=== PATIENT | female | born 2000 | race Two or more races ===

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

== ENCOUNTER 2019-12-14 15:06 | Emergency (ER) | payer OTHER ==
[~2019-12-14] VITALS: Ht 167.6 cm; Wt 56.7 kg
[2019-12-14] MEDS ORDERED: ACETAMINOPHEN 500 MG TAB PO ONE (16:45)
[2019-12-14 17:20] LABS: HEMATOCRIT 46.5 % (36.0-47.0); HEMOGLOBIN 15.7 g/dl (12.0-15.5); MEAN CORPUSCULAR HEMOGLOBIN 30.5 pg (27.0-33.0); MEAN CORPUSCULAR HGB CONC 33.8 g/dl (32.0-36.5); MEAN CORPUSCULAR VOLUME 90.5 fl (80.0-96.0); PLATELET COUNT, AUTOMATED 156 10^3/uL (150-450); RED BLOOD COUNT 5.14 10^6/uL (4.00-5.40); WHITE BLOOD COUNT 5.7 10^3/uL (4.0-10.0)
[2019-12-14 17:49] LABS: ALBUMIN 3.6 GM/DL (3.2-5.2); ALT/SGPT 48 U/L (12-78); BILIRUBIN,DIRECT 0.3 MG/DL (0.0-0.2); BILIRUBIN,TOTAL 0.9 MG/DL (0.2-1.0); BLOOD UREA NITROGEN 12 MG/DL (7-18); CALCIUM LEVEL 9.2 MG/DL (8.5-10.1); CARBON DIOXIDE LEVEL 26 MEQ/L (21-32); CHLORIDE LEVEL 105 MEQ/L (98-107); CREATININE FOR GFR 0.74 MG/DL (0.55-1.30); GLUCOSE, FASTING 77 MG/DL (70-100); LIPASE 95 U/L (73-393); POTASSIUM SERUM 3.8 MEQ/L (3.5-5.1); SODIUM LEVEL 139 MEQ/L (136-145); TOTAL PROTEIN 7.7 GM/DL (6.4-8.2)
[2019-12-14 17:50] LABS: HCG, SERUM QUALITATIVE NEGATIVE (NEGATIVE)
[2019-12-14 17:53] LABS: ATYPICAL LYMPH 6 % (0-5); EOSINOPHILS 1 % (0-3); LYMPHOCYTES 18 % (16-44); MONOCYTES 2 % (0-5); NEUTROPHILS 69 % (28-66); PLATELET ESTIMATE NORMAL (NORMAL)
[2019-12-14] MEDS ORDERED: CIPR-249 PO (18:40)
[2019-12-14 18:51] VITALS: BP 110/62
--- NOTE | 2019-12-15 04:44 | REP ---
CHEST PORTABLE: REASON: Possible COVID-19. Portable view of the chest. FINDINGS: The technique utilized in obtaining the radiograph has magnified the cardiac silhouette and accentuated the interstitial markings. The superior mediastinal structures are midline. The cardiac silhouette is unremarkable in size, shape, and position. The diaphragmatic surfaces of the lungs are regular, and the costophrenic angles are clear. The pulmonary brandon are clear. The imaged osseous structures are intact. IMPRESSION: There is no acute cardiopulmonary disease. Electronically Signed by Ike Mancera DO 12/15/2019 09:16 A
== END 2019-12-14 18:58 | disposition home or self-care (01) ==
LOC: M ED 15:06
DX: J06.9 Acute upper respiratory infection, unspecified (principal); N10 Acute pyelonephritis; N30.90 Cystitis, unspecified without hematuria

== ENCOUNTER → 2020-10-07 | Outpatient (REF) | payer MEDICAID ==
[~2020-10-07] MED LIST: CIPR-249 PO
== END ==
LOC: M LAB REF 16:26
PROVIDERS: ATTEND Advanced Practice Midwife
DX: Z34.83 Encounter for supervision of other normal pregnancy, third trimester (principal)

== ENCOUNTER 2020-10-24 04:32 | Inpatient (IN) | payer MEDICAID ==
[2020-10-24] VITALS (94 sets, daily range): BP systolic 93–219; BP diastolic 50–125
[~2020-10-24] VITALS: Ht 167.6 cm; Wt 77.2 kg
[2020-10-24 06:07] LABS: HEMATOCRIT 38.4 % (36.0-47.0); HEMOGLOBIN 13.3 g/dl (12.0-15.5); MEAN CORPUSCULAR HEMOGLOBIN 31.3 pg (27.0-33.0); MEAN CORPUSCULAR HGB CONC 34.6 g/dl (32.0-36.5); MEAN CORPUSCULAR VOLUME 90.4 fl (80.0-96.0); PLATELET COUNT, AUTOMATED 205 10^3/uL (150-450); RED BLOOD COUNT 4.25 10^6/uL (4.00-5.40); WHITE BLOOD COUNT 18.6 10^3/uL (4.0-10.0)
[2020-10-24 06:29] LABS: ALT/SGPT 11 U/L (12-78); BILIRUBIN,TOTAL 0.3 MG/DL (0.2-1.0); CREATININE FOR GFR 0.56 MG/DL (0.55-1.30); GLOMERULAR FILTRATION RATE > 60.0 (>60); LDH LACTATE DEHYDROGENASE 250 U/L (84-246); TOTAL PROTEIN,RANDOM URINE 22.9 MG/DL (0.0-12.0); URIC ACID 4.3 MG/DL (2.6-6.0)
[2020-10-24] MEDS ORDERED: OXYTOCIN INJ 10 UNITS/ML VIAL (J2590) IM PRN (07:30)
[2020-10-24] MEDS ORDERED: OXYTOCIN DRIP 30 UNITS in IV 1 EA IV PRN (07:30)
[2020-10-24] MEDS ORDERED: LIDOCAINE 1% MDV 20ML VIAL INFIL PRN (07:30)
[2020-10-24] MEDS ORDERED: OXYTOCIN DRIP 30 UNITS in IV 1 EA IV SCH ×2 (07:30→13:25)
[2020-10-24] MEDS: LR 1,000 ML IV SCH ×2 (07:49→12:19)
[2020-10-24] MEDS ORDERED: PROMETHAZINE INJ 25 MG/ML VIAL (J2550) IV ONE (08:30)
[2020-10-24] MEDS ORDERED: BUTORPHANOL 2 MG/ML INJ (J0595) IV PRN (08:30)
--- NOTE | 2020-10-24 08:47 | HPE ---
HISTORY AND PHYSICAL DATE OF ADMISSION: 10/24/2020 HISTORY OF PRESENT ILLNESS: Carly is a 20-year-old 1 para 0, she is at 40 and 4/7th weeks gestation with an EDC of 10/20/2020 based on first trimester ultrasound. She presents to Labor and Delivery today with a report of painful contractions that started at 2300 last night and has become progressively more painful and uncomfortable. She does deny vaginal bleeding and leakage of fluid. The fetus has been active. Her care was initiated out of state in [place] with a transfer of care to [facility] at 38 weeks gestation. course has been uncomplicated. OBSTETRIC HISTORY: Primigravida. OBSTETRIC LABS: A positive, antibody screen negative, syphilis negative, hepatitis B negative, hepatitis C negative, HIV negative, gonorrhea and chlamydia negative. She did have gestational diabetic screening of 150. Her 3 hour glucose tolerance test was not completed due to the vomiting of the Glucola. Her fasting was 58 and her 1 hour was 145. Urine culture was negative and her GBS is negative. PAST MEDICAL HISTORY: Noncontributory. PAST SURGICAL HISTORY: None. FAMILY HISTORY: Noncontributory. SOCIAL HISTORY: The patient is single, however the father of the baby is at bedside and supportive. She is a nonsmoker. Denies alcohol and drug use. No history of sexually transmitted infection. Denies a history of abuse, physical, sexual and emotional. ALLERGIES: Adhesives. CURRENT MEDICATIONS: vitamin. OBJECTIVE: Her blood pressure upon arrival is elevated in the severe range with persistent continued elevations above the normal range. She has not had too severe range pressures 10 minutes apart, so at this point IV Labetalol has not been employed. Her temperature is 98.8, pulse 65, blood pressure again 167/106, most recent is 143/81. She is alert and oriented x3. heart rate is 120 with moderate variability, positive accelerations, negative decelerations. Her contractions are every 2-6 minutes, they are mild to palpation and lasting 30 to 40 seconds. Her abdomen is gravid, cephalic presentation. Estimated weight is 7 pounds. Sterile vaginal exam: Fingertip dilated, 80% effaced, -3 station, posterior moderate texture, no show. Her spot urine was 0.60 with preeclamptic labs returning normal values. ASSESSMENT: Intrauterine at 40 and 4/7th weeks heart rate Category 1, preeclampsia. PLAN: Admit the patient to Labor and Delivery, routine laboratories, bed rest with bathroom privileges, a clear liquid diet, start IV Pitocin for labor augmentation due to preeclampsia. I did review risks, benefits and alternatives, all the patient's questions have been answered. She has been verbally consented for emergency surgery and blood products if they are necessary. I do anticipate active labor.
[2020-10-24] MEDS ORDERED: hydrALAZINE 20MG/ML 1ML VIAL (J0360 PER 20MG) IV STA ×2 (08:56→18:47)
[2020-10-24] MEDS ORDERED: FENTANYL 2MCG/ML ROPIVACAINE 0.2% IN 0.9% NACL 100ML IVBAG As Ordered ONE (11:02)
[2020-10-24] MEDS ORDERED: diphenhydrAMINE 50MG/ML VIAL (J1200) IV PRN (11:25)
[2020-10-24] MEDS ORDERED: EPIDURAL/PCA KEYS XX PRN (11:25)
[2020-10-24] MEDS ORDERED: ePHEDrine SULFATE 25 MG/5 ML(5MG/ML) SYRINGE IV PRN (11:25)
[2020-10-24] MEDS ORDERED: ONDANSETRON 4MG/2ML VIAL IV PRN (11:25)
[2020-10-24] MEDS ORDERED: EPIDURAL COMMENT XX SCH (11:25)
[2020-10-24] MEDS ORDERED: REFRIGERATOR IV KEYS XX PRN (11:25)
[2020-10-24] MEDS ORDERED: LACTATED RINGER'S 1000 ML IV PRN (11:25)
[2020-10-24] MEDS ORDERED: NALOXONE INJ 0.4MG/1ML VIAL (J2310 PER 1MG) IV PRN (11:25)
[2020-10-24] MEDS ORDERED: FENTANYL/ROPIVACAINE/NACL BAG 100 ML EPIDURAL SCH (11:25)
[2020-10-24] MEDS ORDERED: LABETALOL 100MG/20ML VIAL IV STA ×2 (12:54→18:18)
[2020-10-24] MEDS ORDERED: LABETALOL 100MG/20ML VIAL As Ordered ONE (12:55)
[2020-10-24] MEDS ORDERED: CALCIUM GLUCONATE 1,000 MG in D5W MINI-BAG PLUS 100 ML IV PRN (13:20)
[2020-10-24] MEDS ORDERED: MAG Sulf (L&D) 4 GM/100 ML 4 GM in IV 1 EA IV ONE (13:20)
[2020-10-24] MEDS ORDERED: MAGNESIUM *L&D* 4GM/100ML BAG (40MG/ML) As Ordered ONE (13:20)
[2020-10-24] MEDS ORDERED: MAGNESIUM SULFATE 4% INJ 20GM/500ML (40MG/ML) As Ordered ONE (13:21)
[2020-10-24] MEDS ORDERED: DIBUCAINE 1% OINTMENT 30GM TOP PRN (13:25)
[2020-10-24] MEDS ORDERED: IBUPROFEN 800 MG TAB PO PRN (13:25)
[2020-10-24] MEDS ORDERED: RHOGAM 300 MCG (1500 IU) INJ (J2790) IM SCH (13:25)
[2020-10-24] MEDS ORDERED: ACETAMINOPHEN 500 MG TAB PO PRN (13:25)
[2020-10-24] MEDS ORDERED: DOCUSATE SODIUM 100MG CAPSULE PO PRN (13:25)
[2020-10-24] MEDS ORDERED: MEASLES,MUMPS,RUBELLA VACCINE INJ (MMR-II) (90707) SC SCH (13:25)
[2020-10-24] MEDS ORDERED: IBUPROFEN 600MG TAB PO PRN (13:25)
--- NOTE | 2020-10-24 13:32 | DNPDOC ---
[facility] Delivery Note Delivery Note DATE OF DELIVERY: 10/24/2020 PREDELIVERY DIAGNOSIS: 40w4d augmentation of latent labor for pre-eclampsia withOUT severe features POST DELIVERY DIAGNOSIS: Delivered. PROCEDURE: Spontaneous vaginal delivery VP [employer] [facility]: Dr. Mary Ricks MD ANESTHESIA: epidural ESTIMATED BLOOD LOSS: 200 mL. FINDINGS: 5 pound 13 ounce (2650g) female , Score 8/9, nuchal cord times 1 DELIVERY SUMMARY: Carly is a 20yo [id number] s/p uncomplicated at 40w4d after undergoing augmentation of latent labor for pre-eclampsia withOUT severe features, delivering at 1241 on 10/24/20. She received IV pitocin and crystal cervical bulb and very quickly progressed to C/C/0, at which point she began pushing. With excellent maternal effort, 's head delivered OA, restituted OMAR. There was a left compound hand and loose nuchal cord present. Left anterior shoulder delivered followed by posterior shoulder and corpus. Nuchal cord then reduced. was vigorous with lusty cry, apgars 8/9, placed on maternal abdomen. After approximately 2 minutes, cord was clamped x2 and cut by FOB. Cord blood obtained for MBT Rh neg. With firm traction on the cord and uterine massage, placenta delivered spontaneously and intact with centrally inserted 3 vessel cord. Bimanual massage was performed with firming of the uterus. IV pitocin bolused per protocol. Inspection of vagina and perineum revealed bilateral labial lacerations leading into bilateral sulcal lacerations repaired in routine fashion with 2-0 and 3-0 vicryl with complete hemostasis and excellent reapproximation. Another vaginal sweep performed with retrieval of only a small clot, and fundus remained firm at u-2cm. All counts correct x2. Mom and baby were doing well when I left the room. MD Rambo London Katrina D MD October 24, 2020 13:32
[2020-10-24] MEDS: LABETALOL 200 MG TAB PO SCH (19:27)
[2020-10-24] MEDS: ACETAMINOPHEN TAB 650MG DOSE (2X325MG) PO PRN (20:10)
[2020-10-24] MEDS ORDERED: LABETALOL 100MG/20ML VIAL IV ONE (20:35)
[2020-10-25] VITALS (19 sets, daily range): BP systolic 99–156; BP diastolic 51–101
[2020-10-25] MEDS: MAG Sulf (OBGYN) 20GM/500ML 20,000 MG in IV 1 EA IV SCH ×2 (00:22→10:33)
[2020-10-25] MEDS: LR 1,000 ML IV SCH ×2 (01:07→14:26)
[2020-10-25] MEDS: ACETAMINOPHEN TAB 650MG DOSE (2X325MG) PO PRN (03:01)
[2020-10-25] MEDS: LABETALOL 200 MG TAB PO SCH ×2 (07:21→21:00)
[2020-10-25] MEDS: PRENATAL VITAMINS CHEWABLE TABLET PO SCH (08:40)
[2020-10-25] MEDS ORDERED: SLF 3 ML SYR IV PRN (17:50)
[2020-10-25] MEDS: SLF 3 ML SYR IV SCH (22:00)
[2020-10-26 02:00] VITALS: BP 130/75
[2020-10-26] MEDS: SLF 3 ML SYR IV SCH (06:00)
[2020-10-26] MEDS ORDERED: LABE20TAB PO (07:14)
[2020-10-26 08:36] VITALS: BP 137/82
[2020-10-26] MEDS: PRENATAL VITAMINS CHEWABLE TABLET PO SCH (08:36)
[2020-10-26] MEDS: LABETALOL 200 MG TAB PO SCH (08:36)
[2020-10-26 10:37] VITALS: BP 137/83
== END 2020-10-26 11:55 | disposition home or self-care (01) | DRG 560 ==
LOC: M LDO 04:32 → M LDI 06:51 → M OBS 10-25 17:36
PROVIDERS: ADMIT Advanced Practice Midwife; ATTEND Advanced Practice Midwife
PROC: 10E0XZZ Delivery of Products of Conception, External Approach (ICD-10-PCS; principal; 2020-10-24)
PROC: 0KQM0ZZ Repair Perineum Muscle, Open Approach (ICD-10-PCS; 2020-10-24)
PROC: 0HQ9XZZ Repair Perineum Skin, External Approach (ICD-10-PCS; 2020-10-24)
DX: O14.04 Mild to moderate pre-eclampsia, complicating childbirth (principal); O48.0 Post-term pregnancy; Z3A.40 40 weeks gestation of pregnancy; Z37.0 Single live birth; O64.5XX0 Obstructed labor due to compound presentation, not applicable or unspecified; O69.81X0 Labor and delivery complicated by cord around neck, without compression, not applicable or unspecified; O71.4 Obstetric high vaginal laceration alone; O70.0 First degree perineal laceration during delivery

== ENCOUNTER 2024-01-20 14:23 | Emergency (ER) | payer OTHER, MEDICAID ==
[~2024-01-20] VITALS: Ht 167.6 cm; Wt 63.7 kg
[~2024-01-20 14:23] MED LIST changes: +LABE20TAB PO
[2024-01-20 16:08] LABS: BASO % 0.4 % (0.0-1.0); EOS % 0.1 % (0.0-3.0); HEMATOCRIT 43.8 % (36.0-47.0); HEMOGLOBIN 15.3 g/dl (12.0-15.5); LYMPH # 2.2 10^3/uL (1.5-5.0); LYMPH % 22.9 % (24.0-44.0); MEAN CORPUSCULAR HEMOGLOBIN 30.5 pg (27.0-33.0); MEAN CORPUSCULAR HGB CONC 34.9 g/dl (32.0-36.5); MEAN CORPUSCULAR VOLUME 87.4 fl (80.0-96.0); MONO # 0.6 10^3/uL (0.0-0.8); MONO % 6.1 % (2.0-8.0); NEUTROPHILS # 6.7 10^3/uL (1.5-8.5); NEUTROPHILS % 70.3 % (36.0-66.0); PLATELET COUNT, AUTOMATED 258 10^3/uL (150-450); RED BLOOD COUNT 5.01 10^6/uL (4.00-5.40); WHITE BLOOD COUNT 9.6 10^3/uL (4.0-10.0)
[2024-01-20 16:30] LABS: BLOOD UREA NITROGEN 10 MG/DL (9-23); CALCIUM LEVEL 9.3 MG/DL (8.5-10.1); CARBON DIOXIDE LEVEL 25 MMOL/L (20-31); CHLORIDE LEVEL 106 MMOL/L (98-107); CREATININE FOR GFR 0.56 MG/DL (0.55-1.30); GLOMERULAR FILTRATION RATE > 60.0 (>60); GLUCOSE, FASTING 81 MG/DL (60-100); POTASSIUM SERUM 3.9 MMOL/L (3.5-5.1); SODIUM LEVEL 139 MMOL/L (136-145)
[2024-01-20 16:31] LABS: HCG, SERUM QUALITATIVE NEGATIVE (NEGATIVE)
[2024-01-20] MEDS: NS 1,000 ML IV ONE (18:20)
[2024-01-20 20:01] VITALS: BP 137/81; TEMP 97.1; O2SAT 17
== END 2024-01-20 20:02 | disposition home or self-care (01) ==
LOC: M ED 14:23
DX: R55 Syncope and collapse (principal); J45.909 Unspecified asthma, uncomplicated; F41.9 Anxiety disorder, unspecified; Z91.89 Other specified personal risk factors, not elsewhere classified

== ENCOUNTER → 2024-04-14 | Outpatient (REF) | payer OTHER, MEDICAID ==
[2024-04-14 18:11] LABS: ALBUMIN 3.8 G/DL (3.2-5.2); ALKALINE PHOSPHATASE 58 U/L (35-104); ALT/SGPT 18 U/L (7.0-40); AST/SGOT 12 U/L (<34); BILIRUBIN,TOTAL 0.4 MG/DL (0.3-1.2); BLOOD UREA NITROGEN 12 MG/DL (9-23); CALCIUM LEVEL 9.6 MG/DL (8.5-10.1); CARBON DIOXIDE LEVEL 25 MMOL/L (20-31); CHLORIDE LEVEL 111 MMOL/L (98-107); CREATININE FOR GFR 0.56 MG/DL (0.55-1.30); GLOMERULAR FILTRATION RATE > 60.0 (>60); GLUCOSE, FASTING 87 MG/DL (60-100); POTASSIUM SERUM 4.7 MMOL/L (3.5-5.1); SODIUM LEVEL 141 MMOL/L (136-145)
[2024-04-14 18:13] LABS: TOTAL 25(OH) VITAMIN D 9.5 NG/ML (20.0-100.0)
[2024-04-14 18:20] LABS: HEMOGLOBIN A1c 4.7 % (4.0-6.0)
== END ==
LOC: M LAB REF 16:43
PROVIDERS: ATTEND Physician Assistant
DX: E55.9 Vitamin D deficiency, unspecified (principal); R51.9 Headache, unspecified; Z11.9 Encounter for screening for infectious and parasitic diseases, unspecified

== ENCOUNTER → 2024-05-12 | Outpatient (CLI) | payer OTHER | LOC: M PLAIMG 15:22 | PROVIDERS: ATTEND Physician Assistant | DX: R51.9 Headache, unspecified (principal) ==

== ENCOUNTER 2024-08-19 11:33 | Emergency (ER) | payer OTHER ==
[~2024-08-19] VITALS: Ht 167.6 cm; Wt 61.4 kg
[2024-08-19] MEDS ORDERED: VERA40TA (11:41)
[2024-08-19] MEDS ORDERED: RIME75TA (11:41)
[2024-08-19] MEDS ORDERED: VITA200032 (11:41)
[2024-08-19] MEDS: NS (Normal Saline) 0.9% 1,000 ML IV ONE (13:24)
[2024-08-19 13:40] LABS: BASO % 0.6 % (0.0-1.0); EOS % 0.3 % (0.0-3.0); HEMATOCRIT 41.3 % (36.0-47.0); HEMOGLOBIN 14.4 g/dl (12.0-15.5); LYMPH # 1.3 10^3/uL (1.5-5.0); LYMPH % 18.7 % (24.0-44.0); MEAN CORPUSCULAR HGB CONC 34.9 g/dl (32.0-36.5); MEAN CORPUSCULAR VOLUME 88.8 fl (80.0-96.0); MONO # 0.5 10^3/uL (0.0-0.8); MONO % 6.3 % (2.0-8.0); NEUTROPHILS # 5.3 10^3/uL (1.5-8.5); NEUTROPHILS % 73.8 % (36.0-66.0); PLATELET COUNT, AUTOMATED 208 10^3/uL (150-450); RED BLOOD COUNT 4.65 10^6/uL (4.00-5.40); WHITE BLOOD COUNT 7.2 10^3/uL (4.0-10.0)
[2024-08-19 13:50] LABS: CK-MB VALUE MASS < 1.0 NG/ML (<3.6); HCG, SERUM QUALITATIVE NEGATIVE (NEGATIVE)
[2024-08-19 13:52] LABS: ALBUMIN 4.2 G/DL (3.2-5.2); ALKALINE PHOSPHATASE 63 U/L (35-104); ALT/SGPT 20 U/L (7.0-40); AST/SGOT 13 U/L (<34); BILIRUBIN,DIRECT 0.3 MG/DL (<0.4); BLOOD UREA NITROGEN 9 MG/DL (9-23); C REACTIVE PROTEIN QUANTITATIV < 0.50 MG/DL (<1.0); CALCIUM LEVEL 9.3 MG/DL (8.5-10.1); CARBON DIOXIDE LEVEL 23 MMOL/L (20-31); CHLORIDE LEVEL 109 MMOL/L (98-107); CREATININE FOR GFR 0.59 MG/DL (0.55-1.30); GLOMERULAR FILTRATION RATE > 60.0 (>60); GLUCOSE, FASTING 86 MG/DL (60-100); POTASSIUM SERUM 4.1 MMOL/L (3.5-5.1); SODIUM LEVEL 143 MMOL/L (136-145); TOTAL PROTEIN 7.2 G/DL (5.7-8.2)
[2024-08-19 13:53] LABS: FREE T4 1.37 NG/DL (0.89-1.76); THYROID STIMULATING HORMONE 0.535 uIU/ML (0.55-4.78)
[2024-08-19 14:05] LABS: CPK CREATINE PHOSPHOKINASE 78 U/L (34-145); MB/CK RELATIVE INDEX 1.28 (< OR =4)
[2024-08-19 14:20] LABS: ERYTHROCYTE SEDIMENTATION RATE 5 mm/hr (0-20)
[2024-08-19] MEDS ORDERED: ISOVUE-370 76% 100ML VIAL As Ordered ONE (14:25)
[2024-08-19 15:00] VITALS: TEMP 98.7
[2024-08-19 15:30] VITALS: BP 119/82; O2SAT 100
== END 2024-08-19 15:44 | disposition home or self-care (01) ==
LOC: M ED 11:33
DX: R07.9 Chest pain, unspecified (principal); R06.02 Shortness of breath; R00.2 Palpitations; J45.909 Unspecified asthma, uncomplicated; Z91.89 Other specified personal risk factors, not elsewhere classified
CPT/HCPCS: 71045; 71275; 80048; 80076; 82550; 82553; 84439; 84443; 84484; 84703; 85025; 85379; 85652; 86140; 93005; 93041; 94760; 99285; Q9967

== ENCOUNTER → 2024-08-25 | Outpatient (CLI) | payer OTHER ==
[~2024-08-25] MED LIST changes: +RIME75TA; +VERA40TA; +VITA200032
== END ==
LOC: M CARPUL 17:42
PROVIDERS: ATTEND Physician Assistant
DX: R01.1 Cardiac murmur, unspecified (principal)

== ENCOUNTER → 2024-08-30 | Outpatient (CLI) | payer OTHER | LOC: M EKG 13:00 | PROVIDERS: ATTEND Physician Assistant | DX: R00.2 Palpitations (principal); Z53.9 Procedure and treatment not carried out, unspecified reason ==

== ENCOUNTER → 2024-11-28 | Outpatient (CLI) | payer OTHER | LOC: M EKG 14:47 | PROVIDERS: ATTEND Physician Assistant | DX: R00.2 Palpitations (principal) ==

== ENCOUNTER 2024-12-14 01:59 | Emergency (ER) | payer OTHER ==
[~2024-12-14] VITALS: Ht 167.6 cm; Wt 61.4 kg
[2024-12-14 09:19] LABS: BASO # 0.0 10^3/uL (0.0-0.2); BASO % 0.5 % (0.0-1.0); EOS # 0.1 10^3/uL (0.0-0.5); EOS % 0.8 % (0.0-3.0); LYMPH # 1.9 10^3/uL (1.5-5.0); LYMPH % 30.1 % (24.0-44.0); MONO # 0.4 10^3/uL (0.0-0.8); MONO % 7.0 % (2.0-8.0); NEUTROPHILS # 3.8 10^3/uL (1.5-8.5); NEUTROPHILS % 61.4 % (36.0-66.0); PLATELET COUNT, AUTOMATED 191 10^3/uL (150-450)
[2024-12-14 09:53] LABS: CK-MB VALUE MASS < 1.0 NG/ML (<3.6)
[2024-12-14 09:56] LABS: VITAMIN B12 LEVEL 519 PG/ML (211-911)
[2024-12-14 10:01] LABS: CALCIUM LEVEL 8.7 MG/DL (8.5-10.1); CARBON DIOXIDE LEVEL 24 MMOL/L (20-31); CHLORIDE LEVEL 104 MMOL/L (98-107); CREATININE FOR GFR 0.61 MG/DL (0.55-1.30); GLOMERULAR FILTRATION RATE > 90.0 (>60); MAGNESIUM LEVEL 2.1 MG/DL (1.8-2.4); POTASSIUM SERUM 4.2 MMOL/L (3.5-5.1); SODIUM LEVEL 142 MMOL/L (136-145)
[2024-12-14 10:03] LABS: FREE T4 1.23 NG/DL (0.89-1.76)
[2024-12-14 10:05] LABS: CPK CREATINE PHOSPHOKINASE 55 U/L (34-145)
[2024-12-14 10:33] VITALS: BP 120/61; TEMP 97.6; O2SAT 98
== END 2024-12-14 10:37 | disposition home or self-care (01) ==
LOC: M ED 01:59
DX: R00.2 Palpitations (principal); R20.2 Paresthesia of skin; I45.81 Long QT syndrome; Z79.899 Other long term (current) drug therapy; Z91.89 Other specified personal risk factors, not elsewhere classified; F32.A Depression, unspecified; J45.909 Unspecified asthma, uncomplicated; F12.10 Cannabis abuse, uncomplicated